=== PATIENT | female | born 1960 | race Caucasian/White ===

== ENCOUNTER → 2016-11-06 | Outpatient (CLI) | payer BC ==
[~2016-11-06] MED LIST: IBUP200T64 PO; LORA10TA3 PO; NONE PER PT; OXYC-302 PO
== END ==
LOC: STAR 15:55
PROVIDERS: ATTEND Thoracic Surgery (Cardiothoracic Vascular Surgery)
DX: Z02.9 Encounter for administrative examinations, unspecified (principal)

== ENCOUNTER 2016-11-11 07:06 | Inpatient (IN) | payer BC, OTHER ==
[2016-11-06 16:09] VITALS: BP 116/80
[~2016-11-11] VITALS: Ht 165.1 cm; Wt 91.4 kg
[~2016-11-11 07:06] MED LIST changes: -IBUP200T64 PO; -LORA10TA3 PO; -OXYC-302 PO
[2016-11-11] MEDS ORDERED: LORA10TA3 PO (07:49)
[2016-11-11] MEDS ORDERED: IBUP200T64 PO (07:49)
[2016-11-11] MEDS ORDERED: LACTATED RINGERS 1,000 ML IV SCH (07:53)
[2016-11-11] MEDS ORDERED: LIDOCAINE 1%, 2ML ONE (07:55)
[2016-11-11] MEDS ORDERED: LIDOCAINE 1%, 2ML SQ PRN (08:00)
[2016-11-11] MEDS ORDERED: FENTANYL PF 250 MCG/5ML ONE (08:08)
[2016-11-11] MEDS ORDERED: MIDAZOLAM 1 MG/ML, 2ML ONE (08:08)
[2016-11-11] MEDS ORDERED: FENTANYL PF 100 MCG/2ML IV PRN (08:30)
[2016-11-11] MEDS ORDERED: EPHEDRINE 50 MG/ML, 1ML IVPush PRN (08:30)
[2016-11-11] MEDS ORDERED: LABETALOL 5MG/ML, 20ML IV PRN (08:30)
[2016-11-11] MEDS ORDERED: PROMETHAZINE 25 MG/ML, 1ML IV PRN (08:30)
[2016-11-11] MEDS ORDERED: hydrALAzine 20 MG/ML, 1ML IV PRN ×2 (08:30→11:00)
[2016-11-11] MEDS ORDERED: ONDANSETRON 2MG/ML, 2ML IVPush PRN ×2 (08:30→11:00)
[2016-11-11] MEDS ORDERED: OXYcodone 5 MG/5 ML ORAL.SOL UDC PO PRN (08:30)
[2016-11-11] MEDS ORDERED: ACETAMINOPHEN 325 MG TABLET PO PRN (08:30)
[2016-11-11] MEDS ORDERED: HYDROcodone/APAP 7.5-325MG/15ML UDC PO PRN ×2 (08:30→11:00)
[2016-11-11] MEDS ORDERED: SCOPOLAMINE PATCH, 1.5MG PATCH.TD72 TD ONE (09:02)
[2016-11-11] MEDS ORDERED: PROPOFOL 10 MG/ML, 20ML ONE (09:14)
[2016-11-11] MEDS ORDERED: KETOROLAC 30 MG/1 ML ONE (09:14)
[2016-11-11] MEDS ORDERED: NEOSTIGMINE 1 MG/ML, 10ML ONE (09:14)
[2016-11-11] MEDS ORDERED: GLYCOPYRROLATE 0.2MG/1ML ONE (09:14)
[2016-11-11] MEDS ORDERED: SUCCINYLCHOLINE 20 MG/ML, 10ML ONE (09:14)
[2016-11-11] MEDS ORDERED: ONDANSETRON 2MG/ML, 2ML ONE (09:14)
[2016-11-11] MEDS ORDERED: ROCURONIUM 10 MG/ML ONE (09:14)
[2016-11-11] MEDS ORDERED: EPHEDRINE 50 MG/ML, 1ML ONE (09:14)
[2016-11-11] MEDS ORDERED: CEFAZOLIN 1,000 MG ONE (09:14)
[2016-11-11] MEDS ORDERED: DEXAMETHASONE 4 MG/ML, 1ML ONE (09:14)
[2016-11-11] MEDS ORDERED: BUPIVACAINE/PF-EPI 0.5% 1:200K INFIL ONE (09:41)
[2016-11-11] MEDS: LACTATED RINGERS 1,000 ML IV SCH ×2 (10:38→15:25)
[2016-11-11] MEDS ORDERED: HYDROmorphone 2 MG/ML, 1ML ONE (10:40)
[2016-11-11] MEDS: HYDROmorphone 1 MG/ML, 1ML IV PRN ×4 (10:42→11:27)
[2016-11-11] MEDS ORDERED: HYDROcodone/APAP 7.5-325MG/15ML UDC ONE (10:50)
[2016-11-11] MEDS ORDERED: ACETAMINOPHEN 650 MG SUPP PR PRN (11:00)
[2016-11-11] MEDS ORDERED: ENALAPRILAT 1.25 MG/ML, 2ML IV PRN (11:00)
[2016-11-11] MEDS ORDERED: PROMETHAZINE 12.5 MG SUPP PR PRN (11:00)
[2016-11-11] MEDS ORDERED: morphine SULFATE 10 MG/ML, 1ML IV PRN (11:00)
[2016-11-11] MEDS ORDERED: PROMETHAZINE 25 MG/ML, 1ML IM PRN (11:00)
[2016-11-11 12:30] VITALS: BP 120/54
[2016-11-11 12:39] VITALS: BP 120/54
[2016-11-11] MEDS ORDERED: SCOPOLAMINE PATCH, 1.5MG PATCH.TD72 TD SCH (13:00)
[2016-11-11] MEDS: FAMOTIDINE 20 MG TABLET PO SCH (15:21)
[2016-11-11] MEDS: DIPHENHYDRAMINE 50 MG/ML, 1ML IV PRN (16:01)
[2016-11-11] MEDS: CEFAZOLIN PMX 2GM/50ML 50 ML IVPB SCH (18:22)
[2016-11-11 18:35] VITALS: BP 104/70
[2016-11-11 18:40] VITALS: BP 104/70
[2016-11-11] MEDS: KETOROLAC 30 MG/1 ML IV PRN (21:37)
[2016-11-12] VITALS (7 sets, daily range): BP systolic 97–108; BP diastolic 60–71
[2016-11-12] MEDS: DIPHENHYDRAMINE 50 MG/ML, 1ML IV PRN (00:12)
[2016-11-12] MEDS: LACTATED RINGERS 1,000 ML IV SCH ×2 (01:56→10:38)
[2016-11-12] MEDS: CEFAZOLIN PMX 2GM/50ML 50 ML IVPB SCH (03:31)
[2016-11-12] MEDS: KETOROLAC 30 MG/1 ML IV PRN ×2 (03:31→08:08)
[2016-11-12] MEDS: FAMOTIDINE 20 MG TABLET PO SCH ×2 (03:31→15:00)
[2016-11-12] MEDS: ENOXAPARIN 40 MG/0.4 ML SQ SCH ×2 (08:08→08:16)
[2016-11-12] MEDS ORDERED: OXYcodone/APAP 5/325MG TABLET ONE (12:28)
[2016-11-12] MEDS ORDERED: OXYcodone/APAP 5/325MG TABLET PO PRN (13:30)
[2016-11-12] MEDS ORDERED: OXYC-302 PO (15:29)
== END 2016-11-12 15:46 | disposition home or self-care (01) | DRG 328 ==
LOC: OUT 07:06 → MERGE 09:00 → EDIP 10:38 → 4NOR 12:11 → DCLOUNGE 11-12 15:20
PROVIDERS: ADMIT Thoracic Surgery (Cardiothoracic Vascular Surgery); ATTEND Thoracic Surgery (Cardiothoracic Vascular Surgery)
PROC: 0BQR4ZZ (ICD-10-PCS; 2016-11-11)
PROC: 0DV44ZZ Restriction of Esophagogastric Junction, Percutaneous Endoscopic Approach (ICD-10-PCS; 2016-11-11)
PROC: 0BQS4ZZ (ICD-10-PCS; principal; 2016-11-11 09:00)
DX: K44.9 Diaphragmatic hernia without obstruction or gangrene (principal); K21.9 Gastro-esophageal reflux disease without esophagitis
CPT/HCPCS: 36415; 82565; J0690; J1100; J1170; J1650; J1885; J2250; J2405; J2704; J2710; J3010; J3490; J0330; J1200; J2270; J7120